=== PATIENT | female | born 1995 | race Caucasian/White ===

== ENCOUNTER 2018-02-05 09:16 | Outpatient (CLI) | payer OTHER ==
[~2018-02-05 09:16] MED LIST: FLONASE ALLERG9.9 ML NASAL; MUCINEX DM ER1 EAC1 PO; VENTOLIN HFA18 GM IH; XOPENEX0.63 MG/3 IH; ZITHROMAX TRI-500 MG PO; ZYRTEC10 MG PO; [UNRECOGNIZED DRUG - OTHER] PO
== END 2018-02-05 09:35 | disposition home or self-care (01) ==
LOC: TOM 09:16
DX: R42 Dizziness and giddiness (principal); R51 Headache; Z13.89 Encounter for screening for other disorder; Z13.1 Encounter for screening for diabetes mellitus; Z11.3 Encounter for screening for infections with a predominantly sexual mode of transmission

== ENCOUNTER 2023-01-14 13:56 | Emergency (ER) | payer OTHER ==
[~2023-01-14] VITALS: Ht 152.4 cm; Wt 77.1 kg
[2023-01-14] MEDS ORDERED: OSEL75CA PO (18:10)
== END 2023-01-14 18:26 | disposition home or self-care (01) ==
LOC: ER 13:56
DX: J10.1 Influenza due to other identified influenza virus with other respiratory manifestations (principal); Z20.822 Contact with and (suspected) exposure to COVID-19; Z88.8 Allergy status to other drugs, medicaments and biological substances

== ENCOUNTER 2023-01-20 01:14 | Emergency (ER) | payer OTHER ==
[~2023-01-20] VITALS: Ht 152.4 cm; Wt 77.1 kg
[~2023-01-20 01:14] MED LIST changes: +OSEL75CA PO
== END 2023-01-20 06:21 | disposition home or self-care (01) ==
LOC: ER 01:14
DX: N92.0 Excessive and frequent menstruation with regular cycle (principal); Z88.2 Allergy status to sulfonamides; Z88.0 Allergy status to penicillin